=== PATIENT | male | born 1990 | race Caucasian/White ===

== ENCOUNTER 2017-05-19 19:13 | Emergency (ER) | payer OTHER ==
[~2017-05-19] VITALS: Ht 180.3 cm; Wt 75.0 kg
[~2017-05-19 19:13] MED LIST: ATRO2DRO OP; DIAZ2TAB3 PO; OXYC1TAB10 PO; PANT40TA25 PO; TOBROO
[2017-05-19] MEDS ORDERED: CARB100T52 PO (19:56)
[2017-05-19] MEDS ORDERED: LAMO100T13 PO (19:57)
[2017-05-19 20:25] LABS: BASOPHILS % (AUTO) 0.6 % (0.0-2.0); EOSINOPHILS % (AUTO) 1.6 % (1.0-6.0); HEMATOCRIT 31.8 % (41-53); HEMOGLOBIN 11.1 g/dL (13.5-17.5); LYMPHOCYTES # (AUTO) 1.4 K/uL (1.0-4.8); LYMPHOCYTES % (AUTO) 19.8 % (22.0-44.0); MEAN CORPUSCULAR HEMOGLOBIN 33.9 pg (26.0-34.0); MEAN CORPUSCULAR VOLUME 97 fL (80-100); MONOCYTES # (AUTO) 0.5 K/uL (0.1-1.0); MONOCYTES % (AUTO) 7.2 % (2.0-9.0); NEUTROPHILS # (AUTO) 5.1 K/uL (1.8-7.7); NEUTROPHILS % (AUTO) 70.8 % (40.0-70.0); PLATELET COUNT (AUTO) 307 K/uL (150-450); RED BLOOD CELL COUNT(AUTO) 3.28 MIL/uL (4.50-5.90); RED CELL DISTRIBUTION WIDTH 15.5 % (11.5-14.5)
[2017-05-19 20:30] LABS: ANION GAP 7 mmol/L (8-16); CALCIUM, TOTAL 9.3 mg/dL (8.8-10.5); CARBON DIOXIDE 31 mmol/L (22-29); CHLORIDE 103 mmol/L (98-107); CREATININE 0.79 mg/dL (0.60-1.30); GLOMERULAR FILTR. RATE CALC > 60 mL/min (>60); GLUCOSE,RANDOM 90 mg/dL (70-110); SODIUM SERUM 141 mmol/L (136-145); UREA NITROGEN, BLOOD 12 mg/dL (7-18)
[2017-05-19 20:36] LABS: ALANINE AMINOTRANSFERASE 29 U/L (12-78); ALBUMIN 4.2 g/dL (3.4-5.0); ALKALINE PHOSPHATASE 119 U/L (46-116); ASPARTATE AMINOTRANSFERASE 18 U/L (15-37); BILIRUBIN,TOTAL 0.2 mg/dL (0.1-1.0)
[2017-05-19 22:43] LABS: AMPHET/METH SCREEN,URINE NEGATIVE (NEGATIVE); BARBITURATE SCREEN, URINE NEGATIVE (NEGATIVE); BENZODIAZEPINES SCREEN,URINE NEGATIVE (NEGATIVE); CANNABINOID SCREEN,URINE NEGATIVE (NEGATIVE); COCAINE SCREEN,URINE NEGATIVE (NEGATIVE); METHADONE SCREEN, URINE NEGATIVE (NEGATIVE); OPIATE SCREEN,URINE NEGATIVE (NEGATIVE)
[2017-05-19 22:44] LABS: PHENCYCLIDINE SCREEN,URINE NEGATIVE (NEGATIVE)
[2017-05-19 23:05] VITALS: BP 118/7
== END 2017-05-19 23:39 | disposition home or self-care (01) ==
LOC: EMS 19:14
DX: S01.01XA Laceration without foreign body of scalp, initial encounter (principal); G43.909 Migraine, unspecified, not intractable, without status migrainosus; W18.39XA Other fall on same level, initial encounter; Y93.89 Activity, other specified; Y92.89 Other specified places as the place of occurrence of the external cause; Y99.8 Other external cause status
CPT/HCPCS: 12001; 36415; 70450; 80053; 80307; 85025; 99285; G0480

== ENCOUNTER 2017-05-23 14:00 | Emergency (ER) | payer MEDICAID, OTHER ==
[~2017-05-23] VITALS: Ht 182.9 cm; Wt 70.9 kg
[~2017-05-23 14:00] MED LIST changes: -ATRO2DRO OP; +CARB100T52 PO; -DIAZ2TAB3 PO; +LAMO100T13 PO; -OXYC1TAB10 PO; -PANT40TA25 PO; -TOBROO
[2017-05-23 17:00] VITALS: BP 122/78
== END 2017-05-23 17:17 | disposition home or self-care (01) ==
LOC: EMS 14:07
DX: S05.11XA Contusion of eyeball and orbital tissues, right eye, initial encounter (principal); G40.909 Epilepsy, unspecified, not intractable, without status epilepticus; W22.8XXA Striking against or struck by other objects, initial encounter; Y93.89 Activity, other specified; Y92.89 Other specified places as the place of occurrence of the external cause; Y99.8 Other external cause status
CPT/HCPCS: 70450; 99284

== ENCOUNTER 2017-06-04 15:58 | Emergency (ER) | payer MEDICAID, OTHER ==
[~2017-06-04] VITALS: Ht 182.9 cm; Wt 70.9 kg
[2017-06-04 16:54] VITALS: BP 136/89
== END 2017-06-04 17:28 | disposition home or self-care (01) ==
LOC: EMS 16:00
DX: Z48.02 Encounter for removal of sutures (principal)
CPT/HCPCS: 99281

== ENCOUNTER 2017-06-06 17:59 | Emergency (ER) | payer OTHER ==
[~2017-06-06] VITALS: Ht 177.8 cm; Wt 72.7 kg
[2017-06-06] MEDS ORDERED: LEVE500T8 PO (18:51)
[2017-06-06 21:01] VITALS: BP 138/82
[2017-06-06] MEDS ORDERED: IBUPROFEN 600 MG TABLET PO ONE (21:15)
== END 2017-06-06 21:53 | disposition home or self-care (01) ==
LOC: EMS 18:00
DX: S90.32XA Contusion of left foot, initial encounter (principal); Z79.899 Other long term (current) drug therapy; W18.39XA Other fall on same level, initial encounter; Y92.89 Other specified places as the place of occurrence of the external cause; Y93.89 Activity, other specified; Y99.8 Other external cause status
CPT/HCPCS: 29540; 99284

== ENCOUNTER 2017-06-12 10:56 | Emergency (ER) | payer OTHER ==
[~2017-06-12] VITALS: Ht 182.9 cm; Wt 77.5 kg
[~2017-06-12 10:56] MED LIST changes: -LAMO100T13 PO; +LEVE500T8 PO
[2017-06-12] MEDS ORDERED: LAMO25TA PO (11:15)
[2017-06-12] MEDS ORDERED: ONDANSETRON HCL 4 MG TABLET PO ONE (12:15)
[2017-06-12] MEDS ORDERED: ACETAMINOPHEN 500 MG TABLET PO ONE (12:15)
[2017-06-12 13:11] VITALS: BP 126/69
== END 2017-06-12 13:13 | disposition home or self-care (01) ==
LOC: EMS 10:57
DX: S05.11XA Contusion of eyeball and orbital tissues, right eye, initial encounter (principal); S00.11XA Contusion of right eyelid and periocular area, initial encounter; G40.909 Epilepsy, unspecified, not intractable, without status epilepticus; W18.39XA Other fall on same level, initial encounter; Y93.89 Activity, other specified; Y92.89 Other specified places as the place of occurrence of the external cause; Y99.8 Other external cause status
CPT/HCPCS: 70450; 99284; Q0162